=== PATIENT | male | born 1965 | race Caucasian/White ===

== ENCOUNTER → 2016-11-27 | Day surgery (SDC) | payer OTHER ==
[~2016-11-27] MED LIST: ASPI81TA27 PO; BENA10TA3 PO; CARV12.544 PO; DIG0125T PO; ERGO1CAP6 PO; FAM20T PO; FURO40TA PO; HYDR12.56 PO; IOHEXOL 350 MG/ML 100ML IJ ONE; LIDOCAINE 2%HCL (LOCAL ANESTH.) INJ 20ML MDV ONE; MAGN400T28 PO; MIDAZOLAM HCL 1MG/1ML-2 ML VIAL ONE; PRAV20TA3 PO; TRIA0.5C10 TOP; VALS320T15 PO; fentaNYL CITRATE 100 MCG/2 ML VL ONE
== END | disposition home or self-care (01) ==
LOC: CATH 12:01
PROVIDERS: ATTEND Internal Medicine Cardiovascular Disease
DX: I42.9 Cardiomyopathy, unspecified (principal); I50.9 Heart failure, unspecified; I27.2 Other secondary pulmonary hypertension; I10 Essential (primary) hypertension; I42.0 Dilated cardiomyopathy
CPT/HCPCS: 93460; C1760; C1894; J1644; J2250; J3010; J7030; Q9967

== ENCOUNTER → 2016-12-03 | Outpatient (CLI) | payer OTHER ==
[~2016-12-03] MED LIST changes: -IOHEXOL 350 MG/ML 100ML IJ ONE; -LIDOCAINE 2%HCL (LOCAL ANESTH.) INJ 20ML MDV ONE; -MIDAZOLAM HCL 1MG/1ML-2 ML VIAL ONE; -fentaNYL CITRATE 100 MCG/2 ML VL ONE
[2016-12-03 15:15] VITALS: BP 129/83
[2016-12-03 16:15] VITALS: BP 117/80
[2016-12-03 16:28] LABS: DEFINITIVE VIEW TRANSMISSION; Hematocrit 39.6 % (41.0-53.0); Mean Corpuscular Hemoglobin 25.9 pg (28.0-32.0); Mean Corpuscular Hgb Conc. 32.9 g/dL (32.0-36.0); Mean Corpuscular Volume 78.9 fL (80.0-100.0); Mean Platelet Volume 8.2 fL (7.4-10.4); Platelet Count (auto) 263 10^3/uL (140-450); Red Cell Distribution Width 14.8 % (11.6-16.0); SUSPECT VIEW TRANSMISSION; White Blood Cell 3.4 10^3/uL (4.4-10.8)
[2016-12-03 16:33] LABS: Metamyelocytes % 0; Myelocytes % 0; Promyelocytes % 0; Reactive Lymphocytes 0
[2016-12-03 16:44] LABS: BUN/Creatinine Ratio 20.8; Calcium 8.6 mg/dL (8.5-10.1); Magnesium 2.3 mg/dL (1.6-2.6); Potassium 3.7 mmol/L (3.5-5.1)
[2016-12-03 16:53] LABS: B-Type Natriuretic Peptide 60.85 pg/mL (0-100)
[2016-12-03 17:26] LABS: Anisocytosis Slight; Platelet Estimate Adequate
[2016-12-03 17:27] LABS: Ovalocytes FEW; Tear Drop Cells FEW
[2016-12-03 18:07] LABS: Temperature: 23.1 C (20.0-25.0)
== END | disposition home or self-care (01) ==
LOC: CHF HDHVI 15:27
PROVIDERS: ATTEND Internal Medicine Cardiovascular Disease
DX: I11.0 Hypertensive heart disease with heart failure (principal); D64.9 Anemia, unspecified; T46.0X6D Underdosing of cardiac-stimulant glycosides and drugs of similar action, subsequent encounter; E55.9 Vitamin D deficiency, unspecified; I42.0 Dilated cardiomyopathy
CPT/HCPCS: 36415; 80048; 80162; 82306; 83735; 83880; 85007; 85027; 93701; G0463

== ENCOUNTER → 2017-01-23 | Outpatient (CLI) | payer OTHER ==
[~2017-01-23] MED LIST changes: +DIGO0.2570 PO; +METF-312 PO; +SACU1TAB7 PO; +SPIR25TA89 PO
[2017-01-23 11:00] VITALS: BP 127/82
[2017-01-23 11:50] VITALS: BP 121/79
[2017-01-23 16:14] LABS: Basophils # (auto) 0 uL; Basophils % (auto) 0.6 % (0.0-2.0); Eosinophils # (auto) 0.2 uL; Eosinophils % (auto) 4.5 % (0.0-7.0); Hematocrit 37.3 % (41.0-53.0); Hemoglobin 12.9 g/dL (13.5-17.5); Lymphocytes # (auto) 1.4 uL; Lymphocytes % (auto) 28.8 % (10.0-50.0); Mean Corpuscular Hemoglobin 28.1 pg (28.0-32.0); Mean Corpuscular Hgb Conc. 34.7 g/dL (32.0-36.0); Mean Platelet Volume 9.1 fL (7.4-10.4); Monocytes # (auto) 0.7 uL; Monocytes % (auto) 13.8 % (0.0-12.0); Neutrophils # (auto) 2.5 uL; Neutrophils % (auto) 52.3 % (37.0-80.0); Platelet Count (auto) 266 10^3/uL (140-450); Red Cell Distribution Width 15.4 % (11.6-16.0); White Blood Cell 4.8 10^3/uL (4.4-10.8)
[2017-01-23 16:28] LABS: INR 0.96 (0.9-1.15); Partial Thromboplastin Time 26.7 sec (22.64-33.71); Prothrombin Time 10.4 sec (9.37-12.3)
[2017-01-23 16:33] LABS: BUN/Creatinine Ratio 16.5; Calcium 8.5 mg/dL (8.5-10.1); Potassium 4.3 mmol/L (3.5-5.1)
== END | disposition home or self-care (01) ==
LOC: Rad HDHVI 10:26
PROVIDERS: ATTEND Internal Medicine Cardiovascular Disease
DX: I10 Essential (primary) hypertension (principal); D64.9 Anemia, unspecified; R79.1 Abnormal coagulation profile; Z01.812 Encounter for preprocedural laboratory examination
CPT/HCPCS: 36415; 71020; 80048; 82962; 85025; 85610; 85730; 93005; G0463

== ENCOUNTER → 2017-03-17 | Outpatient (CLI) | payer OTHER ==
[~2017-03-17] MED LIST changes: -BENA10TA3 PO; -DIG0125T PO; -ERGO1CAP6 PO; -HYDR12.56 PO; -VALS320T15 PO
== END | disposition home or self-care (01) ==
LOC: Rad HDHVI 09:16
PROVIDERS: ATTEND Internal Medicine Cardiovascular Disease
DX: I50.20 Unspecified systolic (congestive) heart failure (principal)
CPT/HCPCS: 93306